=== PATIENT | female | born 1950 | race Caucasian/White ===

== ENCOUNTER → 2018-01-01 | Day surgery (SDC) | payer OTHER ==
--- NOTE | 2018-01-02 06:47 | OP ---
DATE OF OPERATION: 01/01/2018 PREOPERATIVE DIAGNOSIS: Left breast complex lesion at 3 o'clock, 8 cm from the nipple. POSTOPERATIVE DIAGNOSIS: Left breast complex lesion at 3 o'clock, 8 cm from the nipple. PROCEDURE: Left ultrasound-guided cyst aspiration. ANESTHESIA: Local. ATTENDING SURGEON: Milena Goncalves MD ESTIMATED BLOOD LOSS: Minimal. COMPLICATIONS: None. PROCEDURE: Patient was made aware of the risks and benefits of the procedure and consent. She was placed in a supine position. Under sterile conditions 1% lidocaine for local anesthesia. An 18-gauge needle was used under ultrasound guidance to aspirate a small amount of nonbloody cloudy yellow fluid. This completely decompressed the cyst with no residual nodularity. Well tolerated by patient. Sterile dressing applied. Will return to office in 6 months for repeat ultrasound. MILENA GONCALVES M.D. [id number]
== END | disposition home or self-care (01) ==
LOC: FRADUS-SUR 13:44
PROVIDERS: ATTEND Surgery
PROC: BH41ZZZ Ultrasonography of Left Breast (ICD-10-PCS; principal; 2018-01-01)
PROC: 0H9U3ZX Drainage of Left Breast, Percutaneous Approach, Diagnostic (ICD-10-PCS; 2018-01-01)
DX: N60.02 Solitary cyst of left breast (principal); N63.0 Unspecified lump in unspecified breast
CPT/HCPCS: 19000; 76942-TC